=== PATIENT | male | born 1955 ===

== ENCOUNTER 2024-10-22 07:18 | Day surgery (SDC) | payer BC ==
[~2024-10-22] VITALS: Ht 195.6 cm; Wt 119.7 kg
[~2024-10-22 07:18] MED LIST: LISI20 PO; PARO20 PO; PARO25 PO
[2024-10-22] MEDS ORDERED: TRAZ50 PO (07:30)
[2024-10-22 07:37] VITALS: BP 173/78
--- NOTE | 2024-10-22 07:49 | NUR ---
Ambulatory in Day Surgery Patient States Post-Procedure ride home has been arranged. History, Chart, Medications and Allergies reviewed before start of procedure. Pre-Op teaching done. Pt verbalizes understanding.
[2024-10-22] MEDS ORDERED: Midazolam HCl 1MG / ML 2ML Vial ONE (08:05)
--- NOTE | 2024-10-22 08:12 | NUR ---
10/22/24 0812 Sarah Payne CONFIRMED AND REVIEWED H&P, MEDCICATIONS, ALLERGIES, MEDICAL HISTORY, RESPIRATORY HISTORY, VITAL SIGNS, 3-LEAD EKG, CONSENTS, AND PHYSICIAN ORDERS. PATIENT CONFIRMS NPO STATUS AND AGREES WITH SCHEDULED PROCEDURE. MONITOR INTACT WITH CONTINUOUS PULSE OXIMETRY, CAPNOGRAPHY, 3-LEAD EKG, INTERMITTENT BP. SUPPLEMENTAL O2 TO BE TITRATED THROUGHOUT PROCEDURE TO MAINTAIN O2 SATURATION ABOVE 90%. PATIENT DETERMINED TO BE ASA APPROPRIATE FOR PROPOFOL SEDATION PRIOR TO START OF PROCEDURE BY DR. JOSEPH. MALLAMPATI CLASS 3 AIRWAY: VISUALIZATION OF ONLY THE BASE OF THE UVULA.
[2024-10-22 08:42] VITALS: BP 145/74
--- NOTE | 2024-10-22 09:02 | NUR ---
Discharge instructions reviewed with patient. Patient verbalizes understanding. Copy given to patient to take home. Patient States Post-Procedure ride home has been arranged. Discharged via wheelchair to private car for ride home.
== END 2024-10-22 09:04 | disposition home or self-care (01) ==
LOC: ORSCMMR 07:18 → ORD 08:00 → ORSCMMR 09:04
PROVIDERS: Internal Medicine Gastroenterology
PROC: 0DJD8ZZ Inspection of Lower Intestinal Tract, Via Natural or Artificial Opening Endoscopic (ICD-10-PCS; principal; 2024-10-22 08:00)
DX: Z12.11 Encounter for screening for malignant neoplasm of colon (principal); F32.A Depression, unspecified; I10 Essential (primary) hypertension; Z79.899 Other long term (current) drug therapy
CPT/HCPCS: J2250; J2704; J7120